=== PATIENT | female | born 1970 | race African-American/Black ===

== ENCOUNTER 2017-08-02 17:01 | Emergency (ER) | payer BC ==
[~2017-08-02] VITALS: Ht 167.6 cm; Wt 66.0 kg
[2017-08-02] MEDS ORDERED: KETOROLAC 60MG/2ML VIAL IM ONE (20:15)
[2017-08-02] MEDS ORDERED: LORAZEPAM 1MG TABLET PO ONE (20:15)
[2017-08-02 22:56] VITALS: BP 116/70
== END 2017-08-02 23:21 | disposition home or self-care (01) ==
LOC: ER 19:44
DX: S06.0X0A Concussion without loss of consciousness, initial encounter (principal); S33.9XXA Sprain of unspecified parts of lumbar spine and pelvis, initial encounter; S70.01XA Contusion of right hip, initial encounter; S09.90XA Unspecified injury of head, initial encounter; F12.10 Cannabis abuse, uncomplicated; Z88.4 Allergy status to anesthetic agent; V00.131A Fall from skateboard, initial encounter; Y93.51 Activity, roller skating (inline) and skateboarding; Y92.89 Other specified places as the place of occurrence of the external cause; Y99.8 Other external cause status
CPT/HCPCS: 70450; 72100; 73502; 81025; 96372; 99284; J1885; Z7610

== ENCOUNTER 2017-09-25 09:26 | Emergency (ER) | payer BC ==
[~2017-09-25] VITALS: Ht 167.6 cm; Wt 70.0 kg
[2017-09-25] MEDS ORDERED: METOCLOPRAMIDE HCL 10MG/2ML VIAL IV ONE (14:45)
[2017-09-25] MEDS ORDERED: SODIUM CHLORIDE 0.9% 1,000 ML IV ONE (14:45)
[2017-09-25] MEDS ORDERED: KETOROLAC 30MG/ML VIAL IV STA (14:45)
[2017-09-25 15:16] LABS: BASOPHILS % 0.8 % (0.0-2.0); EOSINOPHILS % 0.3 % (0.0-5.0); HEMATOCRIT. 31.6 % (36.0-48.0); HEMOGLOBIN. 10.5 g/dL (12.0-16.0); LYMPHOCYTES % 18.2 % (20.0-50.0); MEAN CORPUSCULAR HEMOGLOBIN 30.7 pg (28.0-32.0); MEAN CORPUSCULAR VOLUME 92.9 fL (81.0-99.0); MEAN PLATELET VOLUME 7.8 fl (7.4-10.4); MONOCYTES % 12.1 % (2.0-8.0); NEUTROPHILS % 68.6 % (40.0-76.0); PLATELET 237 x1000/uL (130-400); RED CELL DISTRIBUTION WIDTH 21.2 % (11.6-14.6)
[2017-09-25 15:22] LABS: PROTHROMBIN TIME 10.3 sec (9.4-11.6)
[2017-09-25 15:23] LABS: CHLORIDE 98 mEq/L (98-107); HCG SCREEN NEGATIVE
[2017-09-25 15:31] LABS: CARBON DIOXIDE 28 mEq/L (21-32); ETHANOL BLOOD < 10 mg/dL
[2017-09-25] MEDS ORDERED: POTASSIUM CHLORIDE 20MEQ TABLET SR PO ONE (15:45)
[2017-09-25 16:36] LABS: CLARITY URINE CLEAR (CLEAR); COLOR URINE YELLOW (YELLOW); KETONES URINE 2+ (NEGATIVE); LEUKOCYTE ESTERASE URINE NEGATIVE (NEGATIVE); NITRITE URINE NEGATIVE (NEGATIVE); OCCULT BLOOD URINE NEGATIVE (NEGATIVE); PROTEIN URINE NEGATIVE (NEGATIVE); SPECIFIC GRAVITY URINE 1.012 (1.005-1.030); UROBILINOGEN URINE 0.2 E.U./dL (0.2-1.0)
[2017-09-25 16:49] LABS: *AMPHETAMINES SCREEN URINE NEGATIVE (NEGATIVE); *BARBITURATES SCREEN URINE NEGATIVE (NEGATIVE); *BENZODIAZEPINES SCREEN URINE NEGATIVE (NEGATIVE); *COCAINE SCREEN URINE NEGATIVE (NEGATIVE); METHADONE URINE SCREEN NEGATIVE (NEGATIVE); OPIATES URINE SCREEN NEGATIVE (NEGATIVE); PHENCYCLIDINE URINE SCREEN NEGATIVE (NEGATIVE)
[2017-09-25 16:51] LABS: CANNABINOID URINE SCREEN PRESUMTIVE POSITIVE (NEGATIVE)
[2017-09-25 17:46] VITALS: BP 121/78
== END 2017-09-25 18:08 | disposition home or self-care (01) ==
LOC: ER 10:11
DX: M54.12 Radiculopathy, cervical region (principal); E87.6 Hypokalemia; D64.9 Anemia, unspecified; R51 Headache; I10 Essential (primary) hypertension; F17.200 Nicotine dependence, unspecified, uncomplicated; F12.10 Cannabis abuse, uncomplicated; F10.20 Alcohol dependence, uncomplicated; Z88.5 Allergy status to narcotic agent
CPT/HCPCS: 36415; 80053; 80305; 81003; 84703; 85025; 85610; 93005; 96361; 96374; 96375; 99285; G0482; J1885; J2765; J7030; Z7610

== ENCOUNTER 2020-04-05 02:42 | Emergency (ER) | payer SELFPAY ==
[~2020-04-05] VITALS: Ht 170.2 cm; Wt 68.0 kg
[2020-04-05] MEDS ORDERED: ONDANSETRON HCL 4MG/2ML INJ IV STA (03:22)
[2020-04-05] MEDS ORDERED: MORPHINE SULFATE 4 MG/ML CPJ (NOT FOR IM USE) IV STA (03:22)
[2020-04-05] MEDS ORDERED: MAGNESIUM/ALUMINUM HYDROXIDE/SIMETHICONE 30ML UDC PO STA (03:22)
[2020-04-05] MEDS ORDERED: SODIUM CHLORIDE 0.9% 1,000 ML IV ONE (03:22)
[2020-04-05 03:42] LABS: BASOPHILS % 0.2 % (0.0-2.0); EOSINOPHILS % 0.2 % (0.0-5.0); HEMATOCRIT. 39.2 % (36.0-48.0); HEMOGLOBIN. 13.4 g/dL (12.0-16.0); LYMPHOCYTES % 14.5 % (20.0-50.0); MEAN CORPUSCULAR HEMOGLOBIN 34.3 pg (28.0-32.0); MEAN CORPUSCULAR VOLUME 100.6 fL (81.0-99.0); MEAN PLATELET VOLUME 8.5 fl (7.4-10.4); MONOCYTES % 10.3 % (2.0-8.0); NEUTROPHILS % 74.8 % (40.0-76.0); PLATELET 227 x1000/uL (130-400); RED CELL DISTRIBUTION WIDTH 14.5 % (11.6-14.6)
[2020-04-05 03:44] LABS: CHLORIDE 101 mEq/L (98-107)
[2020-04-05 05:04] LABS: CLARITY URINE CLOUDY (CLEAR); COLOR URINE DARK YELLOW (YELLOW); KETONES URINE 4+ (NEGATIVE); LEUKOCYTE ESTERASE URINE NEGATIVE (NEGATIVE); NITRITE URINE NEGATIVE (NEGATIVE); OCCULT BLOOD URINE 3+ (NEGATIVE); PH URINE 5.5 (4.5-8.0); PROTEIN URINE 3+ (NEGATIVE); SPECIFIC GRAVITY URINE 1.028 (1.005-1.030)
[2020-04-05] MEDS ORDERED: ONDANSETRON HCL 4MG/2ML INJ IV ONE (06:30)
[2020-04-05] MEDS ORDERED: MORPHINE SULFATE 4 MG/ML CPJ (NOT FOR IM USE) IV ONE (06:30)
[2020-04-05 07:04] VITALS: BP 135/80
== END 2020-04-05 07:13 | disposition home or self-care (01) ==
LOC: ER 02:42
DX: R10.13 Epigastric pain (principal); K21.9 Gastro-esophageal reflux disease without esophagitis; Z98.51 Tubal ligation status
CPT/HCPCS: 36415; 76705; 76830; 76856; 80053; 81003; 81025; 83690; 84702; 85025; 96361; 96374; 96375; 96376; 99285; J2270; J2405; J7030

== ENCOUNTER 2020-06-08 09:36 | Emergency (ER) | payer MEDICAID ==
[~2020-06-08] VITALS: Ht 167.6 cm; Wt 68.0 kg
[2020-06-08 10:16] VITALS: BP 146/101
== END 2020-06-08 10:40 | disposition home or self-care (01) ==
LOC: ER 09:36
DX: H92.01 Otalgia, right ear (principal); K58.9 Irritable bowel syndrome, unspecified; Z88.4 Allergy status to anesthetic agent; Z98.51 Tubal ligation status
CPT/HCPCS: 99281

== ENCOUNTER 2020-06-08 20:44 | Emergency (ER) | payer MEDICAID ==
[~2020-06-08] VITALS: Ht 167.6 cm; Wt 68.0 kg
[2020-06-08 20:45] VITALS: BP 134/94
== END 2020-06-08 21:49 | disposition home or self-care (01) ==
LOC: ER 20:44
DX: R20.2 Paresthesia of skin (principal); K58.9 Irritable bowel syndrome, unspecified; T16.1XXA Foreign body in right ear, initial encounter; X58.XXXA Exposure to other specified factors, initial encounter; Y93.9 Activity, unspecified; Y92.9 Unspecified place or not applicable; Z98.51 Tubal ligation status; Z91.041 Radiographic dye allergy status
CPT/HCPCS: 99281

== ENCOUNTER 2020-11-19 21:26 | Inpatient (IN) | payer MEDICAID, OTHER ==
[~2020-11-19] VITALS: Ht 167.6 cm; Wt 71.7 kg
[2020-11-19] MEDS ORDERED: ONDANSETRON HCL 4MG/2ML INJ IV STA (22:13)
[2020-11-19] MEDS ORDERED: FAMOTIDINE 20MG/2ML VIAL IV ONE (22:15)
[2020-11-19] MEDS ORDERED: ASPIRIN 81MG TABLET PO ONE (22:15)
[2020-11-19] MEDS ORDERED: NITROGLYCERIN OINT 1GM/INCH UDPKT TD ONE (22:15)
[2020-11-19 23:00] LABS: BASOPHILS % 0.2 % (0.0-2.0); HEMOGLOBIN. 13.3 g/dL (12.0-16.0); LYMPHOCYTES % 8.7 % (20.0-50.0); MEAN CORPUSCULAR HEMOGLOBIN 32.3 pg (28.0-32.0); MEAN CORPUSCULAR VOLUME 97.1 fL (81.0-99.0); MEAN PLATELET VOLUME 8.2 fl (7.4-10.4); MONOCYTES % 8.8 % (2.0-8.0); NEUTROPHILS % 82.3 % (40.0-76.0); PLATELET 219 x1000/uL (130-400); RED BLOOD CELL COUNT 4.12 mill/uL (4.2-5.4); RED CELL DISTRIBUTION WIDTH 13.5 % (11.6-14.6)
[2020-11-19 23:07] LABS: CHLORIDE 99 mEq/L (98-107)
[2020-11-19 23:11] LABS: ETHANOL BLOOD < 10 mg/dL
[2020-11-19 23:13] LABS: D-DIMER 1.43 mg/L FEU (<0.50); INR 0.9; PROTHROMBIN TIME 9.7 sec (9.6-11.0)
[2020-11-19] MEDS ORDERED: SODIUM CHLORIDE 0.9% 1,000 ML IV ONE (23:15)
[2020-11-19] MEDS ORDERED: SODIUM CHLORIDE 0.9% 1000ML BAG (SEPSIS BOLUS) IV ONE (23:45)
[2020-11-19] MEDS ORDERED: PIPERACILLIN/TAZ 3.375G PREMIX 50 ML IV SCH (23:45)
[2020-11-19 23:56] LABS: CLARITY URINE CLOUDY (CLEAR); COLOR URINE YELLOW (YELLOW); KETONES URINE 4+ (NEGATIVE); LEUKOCYTE ESTERASE URINE NEGATIVE (NEGATIVE); NITRITE URINE NEGATIVE (NEGATIVE); OCCULT BLOOD URINE 2+ (NEGATIVE); PH URINE 5.5 (4.5-8.0); PROTEIN URINE 3+ (NEGATIVE); SPECIFIC GRAVITY URINE 1.023 (1.005-1.030); UROBILINOGEN URINE 0.2 E.U./dL (0.2-1.0)
[2020-11-20 00:08] LABS: *BARBITURATES SCREEN URINE NEGATIVE (NEGATIVE); *BENZODIAZEPINES SCREEN URINE NEGATIVE (NEGATIVE)
[2020-11-20 00:09] LABS: *AMPHETAMINES SCREEN URINE NEGATIVE (NEGATIVE); *COCAINE SCREEN URINE NEGATIVE (NEGATIVE); METHADONE URINE SCREEN NEGATIVE (NEGATIVE); OPIATES URINE SCREEN NEGATIVE (NEGATIVE); PHENCYCLIDINE URINE SCREEN NEGATIVE (NEGATIVE)
[2020-11-20 00:13] LABS: CANNABINOID URINE SCREEN PRESUMTIVE POSITIVE (NEGATIVE)
[2020-11-20] MEDS ORDERED: IOHEXOL 350 MG/ML 200ML INFUS..BTL IV ONE (03:54)
[2020-11-20] MEDS ORDERED: DEXT 5%/0.9% NACL 1,000 ML IV SCH (07:30)
[2020-11-20] MEDS ORDERED: ONDANSETRON HCL 4MG/2ML INJ IV PRN (07:30)
[2020-11-20] MEDS ORDERED: DIPHENHYDRAMINE 50MG/ML VIAL IV PRN (07:30)
[2020-11-20] MEDS ORDERED: HYDROCODONE/ACETAMINOPHEN 10/325MG TABLET PO PRN (07:30)
[2020-11-20 08:00] VITALS: BP 135/93
[2020-11-20] MEDS ORDERED: CEFTRIAXONE 1 G PREMIX 50 ML IV SCH (08:00)
[2020-11-20 09:00] VITALS: BP 135/93
[2020-11-20] MEDS: FAMOTIDINE 20MG/2ML VIAL IV SCH ×2 (10:31→20:47)
[2020-11-20] MEDS: ASPIRIN 81MG EC TABLET PO SCH (10:31)
[2020-11-20] MEDS: ENOXAPARIN 40MG/0.4ML SYR SUBCUT SCH (10:32)
[2020-11-20] MEDS: METOCLOPRAMIDE HCL 10MG/2ML VIAL IV SCH ×3 (11:31→23:06)
[2020-11-20 11:51] LABS: T4 FREE 0.71 ng/dL (0.76-1.46)
[2020-11-20 12:00] VITALS: BP 143/95
[2020-11-20] MEDS: CEFTRIAXONE 1,000 MG in DEXTROSE 5% WATER 50 ML IV SCH (12:18)
[2020-11-20] MEDS: SODIUM CHLORIDE 0.45% 1,000 ML IV SCH ×2 (12:18→20:47)
[2020-11-20 16:00] VITALS: BP 154/100
[2020-11-20 16:09] LABS: CREATINE KINASE 138 IU/L (26-192)
[2020-11-20 16:11] LABS: CREATINE KINASE MB FRACTION 2.5 ng/mL (0.5-3.6)
[2020-11-20 19:35] LABS: BASOPHILS % 0.4 % (0.0-2.0); EOSINOPHILS % 0.1 % (0.0-5.0); HEMATOCRIT. 34.3 % (36.0-48.0); HEMOGLOBIN. 11.3 g/dL (12.0-16.0); LYMPHOCYTES % 15.3 % (20.0-50.0); MEAN CORPUSCULAR HEMOGLOBIN 31.9 pg (28.0-32.0); MEAN CORPUSCULAR VOLUME 96.7 fL (81.0-99.0); MEAN PLATELET VOLUME 8.3 fl (7.4-10.4); MONOCYTES % 13.8 % (2.0-8.0); NEUTROPHILS % 70.4 % (40.0-76.0); PLATELET 178 x1000/uL (130-400); RED BLOOD CELL COUNT 3.54 mill/uL (4.2-5.4); RED CELL DISTRIBUTION WIDTH 13.5 % (11.6-14.6)
[2020-11-20 20:00] VITALS: BP 146/88
[2020-11-20 20:05] LABS: CHLORIDE 99 mEq/L (98-107)
[2020-11-21] VITALS: BP 131/89
[2020-11-21 00:51] LABS: CREATINE KINASE 141 IU/L (26-192)
[2020-11-21 04:00] VITALS: BP 145/89
[2020-11-21] MEDS: METOCLOPRAMIDE HCL 10MG/2ML VIAL IV SCH ×2 (04:53→11:32)
[2020-11-21 07:52] LABS: HEMATOCRIT. 35.2 % (36.0-48.0); HEMOGLOBIN. 11.7 g/dL (12.0-16.0); MEAN CORPUSCULAR HEMOGLOBIN 31.4 pg (28.0-32.0); MEAN PLATELET VOLUME 8.7 fl (7.4-10.4); PLATELET 192 x1000/uL (130-400); RED BLOOD CELL COUNT 3.71 mill/uL (4.2-5.4); RED CELL DISTRIBUTION WIDTH 12.9 % (11.6-14.6)
[2020-11-21 08:00] VITALS: BP 140/100
[2020-11-21 08:02] LABS: CHLORIDE 100 mEq/L (98-107)
[2020-11-21 08:12] LABS: LDL CHOLESTEROL 137 mg/dL (5-100)
[2020-11-21 08:13] LABS: HDL CHOLESTEROL 108 mg/dL (40-59)
[2020-11-21] MEDS: FAMOTIDINE 20MG/2ML VIAL IV SCH (08:18)
[2020-11-21] MEDS: ENOXAPARIN 40MG/0.4ML SYR SUBCUT SCH (08:19)
[2020-11-21] MEDS: ASPIRIN 81MG EC TABLET PO SCH (08:26)
[2020-11-21] MEDS: SODIUM CHLORIDE 0.45% 1,000 ML IV SCH (10:18)
[2020-11-21] MEDS ORDERED: POTASSIUM CHLORIDE 20MEQ TABLET SR PO NR (11:15)
[2020-11-21] MEDS: CEFTRIAXONE 1,000 MG in DEXTROSE 5% WATER 50 ML IV SCH (11:32)
[2020-11-21 12:00] VITALS: BP 160/100
[2020-11-21 13:05] LABS: PLATELET ESTIMATE NORMAL
[2020-11-21 16:00] VITALS: BP 144/100
[2020-11-21] MEDS ORDERED: METOCLOPRAMIDE HCL 10MG/2ML VIAL IV SCH (18:00)
[2020-11-21] MEDS ORDERED: SENNOSIDES/DOCUSATE SOD 8.6/50MG TABLET PO SCH (21:00)
[2020-11-22] MEDS ORDERED: DOCUSATE SODIUM 250MG CAPSULE PO SCH (09:00)
[2020-11-22] MEDS ORDERED: POLYETHYLENE GLYCOL 3350 (17GM) 1 DOSE PACK PO SCH (09:00)
== END 2020-11-21 18:05 | disposition left against medical advice (07) | DRG 241 ==
LOC: ER 21:26 → 8WST 11-20 00:49 → EDBEDREQDT 11-20 01:05 → EDBEDREQTM 11-20 01:05 → EDBEDREQ 11-20 01:05 → ENRESERV 11-20 07:28
PROVIDERS: ADMIT Family Medicine; ATTEND Family Medicine
DX: K29.20 Alcoholic gastritis without bleeding (principal); K58.9 Irritable bowel syndrome, unspecified; I10 Essential (primary) hypertension; E87.2 Acidosis; R82.90 Unspecified abnormal findings in urine; F10.10 Alcohol abuse, uncomplicated; F12.10 Cannabis abuse, uncomplicated; R07.89 Other chest pain; D70.9 Neutropenia, unspecified; E87.1 Hypo-osmolality and hyponatremia; E87.6 Hypokalemia; D64.9 Anemia, unspecified; K76.0 Fatty (change of) liver, not elsewhere classified; R16.0 Hepatomegaly, not elsewhere classified; Z98.51 Tubal ligation status
CPT/HCPCS: 36415; 71045; 71275; 74018; 80053; 80061; 80305; 80320; 81003; 82550; 82553; 83036; 83605; 83880; 84145; 84439; 84443; 84484; 85025; 85379; 93005; 93306; 96365; 99291; J0696; J1650; J2405; J2543; J2765; J3490; J7060; Q9967; G0480